=== PATIENT | female | born 1965 | race Caucasian/White ===

== ENCOUNTER 2018-05-28 17:32 | Emergency (ER) | payer MEDICAID ==
[~2018-05-28] VITALS: Ht 162.6 cm; Wt 75.7 kg
--- NOTE | 2018-05-28 19:05 | NUR ---
Patient discharged to home in stable conditon. Written and verbal after care instructions given. Patient verbalizes understanding of instructions.
== END 2018-05-28 19:06 | disposition home or self-care (01) ==
LOC: ER 17:34
DX: L03.113 Cellulitis of right upper limb (principal)
CPT/HCPCS: 99283; A4663

== ENCOUNTER 2018-06-01 18:02 | Emergency (ER) | payer MEDICAID ==
[~2018-06-01] VITALS: Ht 162.6 cm; Wt 75.7 kg
--- NOTE | 2018-06-01 18:38 | NUR ---
PATIENT WAS MSE DR GARCIA IN ROOM 03A.
[2018-06-01] MEDS ORDERED: LIDOCAINE 1%-EPI 1:100,000 20 ML VIAL IJ ONE (18:45)
[2018-06-01] MEDS ORDERED: NEOMY/BACITRA/POLYMYXIN B OINT UD PACKET TP ONE ×2 (19:00)
--- NOTE | 2018-06-01 19:13 | NUR ---
Patient discharged to home in stable conditon. Written and verbal after care instructions given. Patient verbalizes understanding of instructions.
[2018-06-01 19:15] VITALS: BP 128/76
== END 2018-06-01 19:16 | disposition home or self-care (01) ==
LOC: ER 18:03
DX: L02.413 Cutaneous abscess of right upper limb (principal)
CPT/HCPCS: A4663; J3490